=== PATIENT | female | born 1955 | race Caucasian/White ===

== ENCOUNTER 2018-10-18 11:03 | Observation (INO) | payer MEDICAID, OTHER ==
--- NOTE | 2018-09-14 14:21 | RADRPT ---
Vent Rate: 58 bpm RR Interval: 1044 msec ME Interval: 199 msec QRS Duration: 96 msec QT Interval: 395 msec QTC Interval: 387 msec P-R-T [place]: 44 - 28 - 51 degrees Sinus rhythm...normal P axis, V-rate 50- 99 Electronically Signed By: Chris Guadarrama
[2018-09-14 18:42] VITALS: BMI 30.7
--- NOTE | 2018-09-19 15:54 | PREOPHP ---
DATE OF ADMISSION: 09/21/2018 Scheduled for surgery 09/21/2018. 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 The patient presented with a right breast mass and imaging studies revealed a suspicious nodule at 12 o'clock 4 cm from the nip ple, measuring 2.6 x 2.4 x 2.1 cm and abnormal axillary lymph node in the right axilla. Core biopsy revealed invasive ductal carcinoma of the breast metastatic to axillary lymph node. The patient is e strogen and progesterone receptor positive, HER-2 negative with a Ki-67 of 5% to 10%. The decision w as made to proceed with surgery as the next step. PAST MEDICAL HISTORY: MEDICATIONS: None. ALLERGIES: NONE. OPERATIONS: Hysterectomy in 1997. GYNECOLOGIC AND OBSTETRIC HISTORY: 3, para 3. She has no prior history of breast abnormalit ies. PHYSICAL EXAMINATION: VITAL SIGNS: The patient is 5-foot, 5 inches, 176 pounds. Vital signs within normal limits. HEENT: Within normal limits. LUNGS: Clear. HEART: Regular rhythm. BREASTS: Moderate in size. The left breast is unremarkable. The right breast reveals 3 x 4 cm mass in the upper breast between 11 and 12 o'clock and small palpable axillary lymph nodes. There is no supraclavicular lymphadenopathy. IMPRESSION: Invasive ductal carcinoma of right breast with axillary lymph node metastasis. PLAN: Right breast partial mastectomy and right axillary lymph node dissection. Full discussion has been had with the patient regarding the nature of her condition, the nature of the surgery and the i ndications, alternatives, options and risks including bleeding, infection, neuritis, injury to adjace nt structures or organs, need for additional treatment that could include surgery, radiation therapy, chemotherapy, hormonal blockade or all of the above based on final pathology, deformity of the breas t from scarring, et cetera. All questions have been answered. The patient understands and agrees to proceed. Dictated By: LE GANNON/EMMANUELLE Conf#: [id number] DID#: [id number]
[~2018-10-18] VITALS: Ht 154.9 cm; Wt 81.7 kg
[2018-10-18] VITALS (15 sets, daily range): BP systolic 116–160; BP diastolic 60–82; PULSE 56–80; RESP 12–19; Ht 154.9 cm; Wt 81.7 kg
[~2018-10-18 11:03] MED LIST: CEFAZOLIN 2 GM/50 ML (PMX) 50 ML IVPB ONE; CEFAZOLIN 2 GM/50 ML (PMX) 50 ML IVPB SCH; SOD CHLORIDE 0.9% 1,000 ML IV SCH
--- NOTE | 2018-10-18 12:49 | HPN ---
Date/Time of Note Date/Time of Note DATE: 10/18/18 TIME: 12:49 Interval H&P Admission Note Pt. seen H&P reviewed: No system changes LE NAPIER Oct 18, 2018 12:49
[2018-10-18] MEDS ORDERED: ISOSULFAN BLUE 1% 5 ML INJ SC ONE (13:17)
--- NOTE | 2018-10-18 13:44 | PREAC ---
Date/Time of Note Date/Time of Note DATE: 10/18/18 TIME: 13:42 Anesthesia Eval and Record Evaluation Time Pre-Procedure Interview DATE: 10/18/18 TIME: 13:42 Age 63 Sex female NPO: 6 hrs Preoperative diagnosis breast mass Planned procedure partial mastectomy Past Medical History Past Medical History: None Surgery & Anesthesia Issues No known issue Meds Anticoagulation: No Beta Mario within 24 hr: No Reason Beta Mario not given: Pt. not on B-Mario No Active Prescriptions or Reported Meds Meds reviewed: Yes Allergies Coded Allergies: No Known Allergy (Unverified , 10/18/18) Allergies Reviewed: Yes Labs/Studies Labs Reviewed: Reviewed by anesthesiologist Result Diagram: 10/16/1890610/16/18906 test: Negative Pre-procedure Exam Last vitals Vital Signs Date Temp Pulse Resp B/P (MAP) Pulse Ox O2 O2 Flow FiO2 Time Delivery Rate 10/18/18 97.8 58 16 160/82 100 Room Air 12:07 (108) Airway: Adequate mouth opening Mallampati: Mallampati I Teeth: Normal Lung: Normal Heart: Normal ASA Physical Status ASA physical status: 2 Emergency: None Planned Anesthetic General/MAC: ETT Pre-operative Attestations Prior to commencing anesthesia and surgery, the patient was re-evaluated, there was verification of: *The patient's identity *The results of appropriate recent lab work and preoperative vital signs *The above evaluation not changing prior to induction *Anesthetic plan, risk benefits, alternative and complications discussed with patient/family; questions answered; patient/family understands, accepts and wishes to proceed. ESSENCE MIKE MD Oct 18, 2018 13:44
[2018-10-18] MEDS ORDERED: CEFAZOLIN 1 GM INJ ONE (13:48)
[2018-10-18] MEDS ORDERED: HYDROmorphONE 2 MG/ML SYG ONE (13:48)
[2018-10-18] MEDS ORDERED: PROPOFOL 20 ML ONE (13:48)
[2018-10-18] MEDS ORDERED: ROCURONIUM 50 MG INJ ONE (13:48)
[2018-10-18] MEDS ORDERED: ONDANSETRON 4 MG INJ ONE (14:39)
[2018-10-18] MEDS ORDERED: SUGAMMADEX SODIUM 200 MG/2 ML VIAL IV ONE (14:40)
--- NOTE | 2018-10-18 15:48 | SIPON ---
Date/Time of Note Date/Time of Note DATE: 10/18/18 TIME: 15:47 Operative Report Preoperative Diagnosis carcinoma right breast Postoperative Diagnosis same Operation/Procedure Performed right breast partial mastectomy and right axillary lymph node dissection Surgeon see signature line senior sales assistant none Anesthesia: general Estimated blood loss: minimal Transfusion Required none Specimen right breast cancer, right axillary lymph nodes Grafts/Implants none Complications none LE NAPIER Oct 18, 2018 15:48
[2018-10-18] MEDS ORDERED: ONDANSETRON 4 MG INJ IV PRN ×2 (16:00)
[2018-10-18] MEDS ORDERED: hydrALAzine 20 MG INJ IV PRN (16:00)
[2018-10-18] MEDS ORDERED: HYDROmorphONE 1 MG/5 ML IV SYRINGE IV PRN ×2 (16:00)
[2018-10-18] MEDS ORDERED: DIPHENHYDRAMINE 25 MG CAP PO PRN (16:00)
[2018-10-18] MEDS ORDERED: HYDROmorphONE 0.5 MG/0.5 ML SYG SC PRN (16:00)
[2018-10-18] MEDS ORDERED: LABETALOL HCL 20MG INJ IV PRN (16:00)
[2018-10-18] MEDS ORDERED: HYDROCODONE/APAP (5/325) TAB PO PRN (16:00)
[2018-10-18] MEDS ORDERED: morphine 2 MG INJ IV PRN ×2 (16:00)
[2018-10-18] MEDS ORDERED: ACETAMINOPHEN 325 MG TAB PO PRN (16:00)
--- NOTE | 2018-10-18 16:08 | PAC ---
Date/Time of Note Date/Time of Note DATE: 10/18/18 TIME: 16:06 Post-Anesthesia Notes Post-Anesthesia Note Last documented vital signs Vital Signs Date Temp Pulse Resp B/P (MAP) Pulse Ox O2 O2 Flow FiO2 Time Delivery Rate 10/18/18 98.3 15:50 10/18/18 58 16 160/82 100 Room Air 12:07 (108) Activity: WNL Respiratory function: WNL Cardiovascular function: WNL Mental status: Baseline Pain reasonably controlled: Yes Hydration appropriate: Yes Nausea/Vomiting absent: Yes Comments ocassional pvc , ekg wnl , discussed with surgeon to have helper driver follow the patient during hospital admission ESSENCE MIKE MD Oct 18, 2018 16:08
--- NOTE | 2018-10-18 16:51 | HP ---
Date/Time of Note Date/Time of Note DATE: 10/18/18 TIME: 16:42 Assessment/Plan VTE Prophylaxis Risk score (from Ns)>0 risk: 5 SCD applied (from Ns): Yes Pharmacological prophylaxis: NA/contraindicated Pharm contraindication: surgical contra Lines/Catheters IV Catheter Type (from Nrsg): Peripheral IV Assessment/Plan Assessment/Plan - Carcinoma right breast. S/p right breast partial mastectomy and right axillary lymph node dissection by Dr Wilson. Continue IV fluids and postoperative antibiotic, pain management. - PVCs, twelve-lead EKG is noted will obtain BMP mag TSH 2D echo, monitor on telemetry floor. Further recommendations based on clinical course. Plan of care discussed with Dr. Ortez. Result Diagram: 10/16/1890610/16/18906 HPI/ROS Admit Date/Time Admit Date/Time Hx of Present Illness The patient is a 63-year-old female who denies any chronic conditions. Patient was evaluated for right breast mass, core biopsy revealed invasive ductal carcinoma of the breast with axillary lymph nodes involvement. Patient was evaluated by Dr. Smith in general surgery consultation and it was decided that patient will proceed with right breast partial mastectomy and right axillary lymph node dissection. Patient was brought to the hospital and underwent surgery. Postoperatively patient noted to have some PVCs on EKG monitoring, 12 leads EKG is done and it showed sinus rhythm with no ST elevation or depression. Patient will be admitted to telemetry floor for further monitoring. ROS 12 point review of system is negative except for what mentioned in HPI PMH/Family/Social Past Medical History Medical History: no pertinent history Medications Current Medications Cefazolin Sodium/ Dextrose 50 ml @ 100 mls/hr Q8H IVPB ; Start 10/18/18 at 16:00; Stop 10/19/18 at 15:59 Hydromorphone HCl (Dilaudid) 1 mg Q4H PRN SC PAIN LEVEL 6-10; Start 10/18/18 at 16:00 Acetaminophen/ Hydrocodone Bitart ([place] (5/325)) 1 tab Q4H PRN PO MOD PAIN (4- 6) ; Start 10/18/18 at 16:00 Acetaminophen (Tylenol Tab) 650 mg Q4H PRN PO MILD PAIN(1-3)OR ELEVATED TEMP; Start 10/18/18 at 16:00 Diphenhydramine HCl (Benadryl) 25 mg Q6H PRN PO ITCHING; Start 10/18/18 at 16:00 Ondansetron HCl (Zofran Inj) 4 mg Q4H PRN IV NAUSEA AND/OR VOMITING; Start 10/18/18 at 16:00 Potassium Chloride/Dextrose/ Sod Cl 1,000 ml @ 100 mls/hr Q10H IV ; Start 10/18/18 at 15:40 Morphine Sulfate (morphine) 2 mg PACU PRN IV PAIN LEVEL 1-3; Start 10/18/18 at 16:00; Stop 10/18/18 at 20:00 Morphine Sulfate (morphine) 4 mg PACU PRN IV PAIN LEVEL 4-6; Start 10/18/18 at 16:00; Stop 10/18/18 at 20:00 Hydromorphone HCl (Dilaudid) 0.2 mg PACU PRN IV MILD PAIN 1-3; Start 10/18/18 at 16:00; Stop 10/18/18 at 20:00 Hydromorphone HCl (Dilaudid) 0.4 mg PACU PRN IV MOD PAIN 4-6; Start 10/18/18 at 16:00; Stop 10/18/18 at 20:00 Ondansetron HCl (Zofran Inj) 4 mg PACU ORDER PRN IV NAUSEA/VOMITING; Start 10/18/18 at 16:00; Stop 10/18/18 at 20:00 Labetalol HCl (Labetalol) 5 mg PACU ORDER PRN IV HIGH BLOOD PRESSURE; Start 10/18/18 at 16:00; Stop 10/18/18 at 20:00 Hydralazine HCl (Apresoline) 5 mg PACU ORDER PRN IV HIGH BLOOD PRESSURE; Start 10/18/18 at 16:00; Stop 10/18/18 at 20:00 Coded Allergies: No Known Allergy (Unverified , 10/18/18) Past Surgical History Past Surgical Hx: other (Status post hysterectomy in 1997) Family History Significant Family History: other (Gastric cancer in patient's grandmother) Social History Alcohol Use: none Smoking Status: Current every day smoker Drug Use: none Exam/Review of Systems Vital Signs Vitals Vital Signs Date Temp Pulse Resp B/P (MAP) Pulse Ox O2 O2 Flow FiO2 Time Delivery Rate 10/18/18 70 12 121/66 98 Nasal 2.0 16:24 (84) Cannula 10/18/18 98.3 15:50 Exam Constitutional: alert, oriented Head: normocephalic Neck: supple Respiratory: clear to auscultation Cardiovascular: regular rate and rhythm Gastrointestinal: soft, non-tender Musculoskeletal: nl extremities to inspection Extremities: normal pulses Neurological: nl mental status Skin: nl turgor Additional Comments Status post right partial mastectomy, right axillary AARON BILLY REED Oct 18, 2018 16:51
--- NOTE | 2018-10-18 19:19 | OPR ---
DATE OF OPERATION: 10/18/2018 SURGEON: Le Wilson MD ASBESTOS SIDING INSTALLER: None. ANESTHESIOLOGIST: Dr. Bazan. TYPE OF ANESTHESIA: General. PREOPERATIVE DIAGNOSIS: Invasive ductal carcinoma, right breast, metastatic to right axillary lymph node. POSTOPERATIVE DIAGNOSIS: Invasive ductal carcinoma, right breast, metastatic to right axillary lymph node. OPERATION PERFORMED: Right breast partial mastectomy and right axillary lymph node dissection. DESCRIPTION OF PROCEDURE: The patient was taken to the operating room and under general anesthesia with sequential compression device stockings in place, she was prepped and draped in the usual fashion. The mass was located in the upper breast. A transverse curvilinear incision was made, achieving hemostasis with cautery and dissecting flaps circumferentially. A wide excision of the mass was performed down to and including the pectoralis fascia. The specimen was oriented with sutures placed anterior, superior and medial. Inspection by the pathologist revealed the posterior margin to be close, but clinically there was no penetration through the pectoralis fascia, so no additional resection was indicated. The field was irrigated with sterile water and hemostasis carefully achieved with cautery. The incision was closed with interrupted 3-0 Vicryl deep dermal subcutaneous sutures followed by continuous 4-0 Monocryl subcuticular suture. Then, an axillary incision was made, achieving hemostasis with cautery and incising the clavipectoral fascia. The lymph nodes were dissected from axillary vein down using the Voyant electrosurgical device. Palpation then revealed a positive inter-pectoral node, which was also resected and given for pathology. The field was irrigated with water and hemostasis was secured. Through a separate incision inferolaterally, a large flat Michael-Turcios drain was placed into the axilla and sutured to the skin with a 2-0 nylon skin suture. After ascertaining that hemostasis was secure the clavipectoral fascia was closed with interrupted 3-0 Vicryl, subcutaneous tissue was closed with interrupted 3-0 Vicryl and the skin closed with continuous 4-0 Monocryl subcuticular suture. Mastisol and 1/2-inch Steri-Strips were applied to both incisions followed by dry sterile dressing and placement of a surgical brassiere. Final sponge and needle counts were correct. The patient tolerated the procedure well and left the operating room in good condition. Dictated By: LE GANNON/EMMANUELLE Conf#: [id number] [facility]#: [id number] MTDD
[2018-10-18] MEDS: CEFAZOLIN 2 GM/50 ML (PMX) 50 ML IVPB SCH ×3 (20:20→22:55)
[2018-10-18] MEDS: D5W-0.45 NACL + KCL 20 MEQ 1,000 ML IV SCH ×3 (20:20→22:56)
[2018-10-19 00:24] VITALS: BP 126/79; PULSE 68; RESP 17
[2018-10-19 04:13] VITALS: BP 128/77; PULSE 70; RESP 17
[2018-10-19 07:31] VITALS: BP 147/71; PULSE 58; RESP 18
[2018-10-19] MEDS: CEFAZOLIN 2 GM/50 ML (PMX) 50 ML IVPB SCH (08:22)
[2018-10-19] MEDS: D5W-0.45 NACL + KCL 20 MEQ 1,000 ML IV SCH (11:40)
--- NOTE | 2018-10-19 12:21 | PN ---
Date/Time of Note Date/Time of Note DATE: 10/19/18 TIME: 12:19 Assessment/Plan Lines/Catheters IV Catheter Type (from Nrsg): Saline Lock Molina in Place (from Nrsg): No Subjective Detailed Summary Free Text/Dictation AVSS Feels well and ambulates, eating, pain is mild to moderate. Had PVCs in PACU and kept overnight on telemetry Right breast and axilla incisions clean and dry with intact steristrips AARON 50cc since 6pm until now - serosang Imp: Stable Plan: Discharge with AARON drain Rx [place] 5/325 #30 F/U office 10/25 Instructions/limitations/supplies discussed/provided Exam/Review of Systems Vital Signs Vitals Vital Signs Date Temp Pulse Resp B/P (MAP) Pulse Ox O2 O2 Flow FiO2 Time Delivery Rate 10/19/18 98.0 58 18 147/71 99 07:31 (96) 10/18/18 Nasal 2.0 20:20 Cannula Intake and Output 10/18/18 10/18/18 10/19/18 1515:00 23:00 07:00 IntakeIntake Total 1500 ml 850 ml OutputOutput Total 10 ml BalanceBalance 1490 ml 850 ml Results Result Diagram: 10/16/18 0907 10/18/18 1739 LE NAPIER Oct 19, 2018 12:21
--- NOTE | 2018-10-19 14:11 | RADRPT ---
Echocardiogram Report Patient Name: Eliane VIEYRA ID: [id number] : 1955 (63y 8m)Study Date: 10/19/2018 7:23:07 AM Gender: FAccession #: [id number] Tech: Sin Conteh PRANAV Location: 520 Ref.Physician: BILLY REED Height(Cm): BSA: Weight(Kg): Quality: AdequateOrder Physician: BILLY REED Account #: Procedures: Echocardiographic Report: Transthoracic echocardiogram with complete 2D, M-Mode, and doppler examination. Indications: Evaluate Left Ventricular function. Measurements: 2D/M Mode Doppler Measurement Value Normal Range Measurement Value Normal Range LVIDd 2D 4.4 [ 3.8 - 5.2 ] cm AV Peak Dany 1.4 [ 100.0 - 170.0 ] cm/sec LVIDs 2D 2.3 [ 2.2 - 3.5 ] cm AV Peak PG 7.0 [ 2.0 - 9.0 ] mmHg LVPWd 2D 1.0 [ 0.6 - 0.9 ] cm LVOT Peak Dany 1.1 [ 70.0 - 110.0 ] cm/sec IVSd 2D 1.0 [ 0.6 - 0.9 ] cm LVOT Peak PG 5.0 [ 2.0 - 6.0 ] mmHg AoR Diam 2D 2.9 [ 2.3 - 3.1 ] cm MV E Peak Dany 0.8 [ 60.0 - 130.0 ] cm/sec EDV 2D 87.2 [ 46.0 - 106.0 ] ml MV A Peak Dany 0.7 [ 100.0 - 120.0 ] cm/sec ESV 2D 17.1 [ 14.0 - 42.0 ] ml MV E/A 1.1 [ 0.8 - 1.5 ] ratio EF 2D 80.4 [ 54.0 - 74.0 ] percent MV Decel Time 169 [ 104 - 258 ] msec LA Dimen 2D 3.2 [ 2.7 - 3.8 ] cm Lat E` Dany 0.1 [ 10.0 - 15.0 ] cm/sec Lateral E/E` 6.5 [ 1.0 - 2.0 ] ratio Med E` Dany 0.1 cm/sec MV E/A 1.1 [ 0.8 - 1.5 ] ratio Findings: Left Ventricle: Normal left ventricular systolic function. Normal left ventricular cavity size. Normal left ventricular wall thickness. Ejection fraction is visually estimated at 60 %. Tissue Doppler/Mitral Doppler indices are within normal limits. Right Ventricle: Normal right ventricular size. Normal right ventricular systolic function. Left Atrium: The left atrium is normal in size. Right Atrium: The right atrium is normal in size. Mitral Valve: Normal appearance and function of the mitral valve with trace physiologic regurgitation. Aortic Valve: Normal appearance of the aortic valve. No significant aortic stenosis or insufficiency. Tricuspid Valve: Normal appearance and function of the tricuspid valve with trace physiologic regurgitation. Normal right ventricular systolic pressure. Pulmonic Valve: Normal pulmonic valve appearance. Pericardium: Normal pericardium with no significant pericardial effusion. Aorta: Normal aortic root. IVC: Normal size and normal respiratory collapse consistent with normal right atrial pressure. Conclusions: Normal left ventricular systolic function. Normal left ventricular cavity size. Normal left ventricular wall thickness. Ejection fraction is visually estimated at 60 %. Tissue Doppler/Mitral Doppler indices are within normal limits. Normal appearance and function of the mitral valve with trace physiologic regurgitation. Normal appearance and function of the tricuspid valve with trace physiologic regurgitation. Normal right ventricular systolic pressure. Electronically Signed By: Chris Guadarrama 2018-10-19 14:10:32 PDT
--- NOTE | 2018-10-23 09:23 | DS ---
Date/Time of Note Date/Time of Note DATE: 10/23/18 TIME: 09: Discharge Summary Admission/Discharge Info Admit Date/Time Oct 18, 2018 at 17:19 Discharge Date/Time Oct 19, 2018 at 15:01 Patient Condition: Stable Hx of Present Illness The patient is a 63-year-old female who denies any chronic conditions. Patient was evaluated for right breast mass, core biopsy revealed invasive ductal carcinoma of the breast with axillary lymph nodes involvement. Patient was evaluated by Dr. Smith in general surgery consultation and it was decided that patient will proceed with right breast partial mastectomy and right axillary ly mph node dissection. Patient was brought to the hospital and underwent surgery. Postoperatively patient noted to have some PVCs on EKG monitoring, 12 leads EKG is done and it showed sinus rhythm with no ST elevation or depression. Patient will be admitted to telemetry floor for further monitoring. Hospital Course - Carcinoma right breast. S/p right breast partial mastectomy and right axillary lymph node dissection by Dr Wilson. Continue IV fluids and postoperative antibiotic, pain management. - PVCs, twelve-lead EKG is noted in recovery, BMP mag TSH are wnl, 2D echo with EF 60%, monitor on telemetry floor, no episodes of arrhythmia, pt denies any CP, denies SOB. Plan of care discussed with Dr. Ortez. Home Meds No Active Prescriptions or Reported Meds Follow-up Plan Follow-up with Dr. Wilson in 1 week. Primary Care Provider Not On Staff Doctor Time spent on discharge: > 30 minutes BILLY REED Oct 23, 2018 09:23
== END 2018-10-19 15:01 | disposition home or self-care (01) ==
LOC: SDS 11:03 → REC 17:19 → TEL 20:26
PROVIDERS: ADMIT Surgery; ATTEND Surgery
DX: C50.911 Malignant neoplasm of unspecified site of right female breast (principal); C77.3 Secondary and unspecified malignant neoplasm of axilla and upper limb lymph nodes; Z17.0 Estrogen receptor positive status [ER+]; F17.200 Nicotine dependence, unspecified, uncomplicated
CPT/HCPCS: 19301; 38525; 38900; 71045; 80048; 80053; 83735; 84443; 85025; 85610; 85730; 88307; 88331; 88341; 88342; 93005; 93306; J0690; J1170; J2405; J3480; Z7500; Z7512; Z7610; 99217; G0378; Q9968